=== PATIENT | male | born 1950 | race Caucasian/White ===

== ENCOUNTER 2017-09-10 06:37 | Day surgery (SDC) | payer MEDICARE ==
[2017-09-09 11:42] VITALS: BMI 24.4
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
[2017-09-10] MEDS ORDERED: CEFAZOLIN/Water 2 GM/20 ML SYRINGE ONE (07:49)
[2017-09-10 08:08] LABS: #Basophils 0.1 thou/uL (0.0-0.2); #Eosinphils 0.3 thou/uL (0.0-0.7); #Lymphocytes 3.1 thou/uL (1.20-3.40); #Monocytes 0.5 thou/uL (0.11-0.59); %Basophils 1.1 % (0.0-1.0); %Lymphocytes 38.5 % (21.0-51.0); %Monocytes 6.8 % (0.0-10.0); Hematocrit 41.7 % (42.0-52.0); Mean Platelet Volume 8.5 fL (7.4-10.4); Red Blood Cell (RBC) Count 4.52 mill/uL (4.70-6.10)
[2017-09-10 08:09] LABS: Anion Gap 11 mmol/L (10-20); BUN (Urea Nitrogen) 14 mg/dL (8.4-25.7); Calc. Creatinine Clearance 122 mL/min (70-130); Calcium 9.2 mg/dL (7.8-10.44); Carbon Dioxide 28 mmol/L (23-31); Chloride 105 mmol/L (98-107); Estimated GFR-MDRD Greater than 90
[2017-09-10] MEDS ORDERED: Midazolam HCl 2 mg/2 ml Vial ONE (08:35)
[2017-09-10] MEDS ORDERED: Fentanyl 100 MCG/2 ML VIAL ONE ×2 (08:35→10:24)
[2017-09-10] MEDS ORDERED: Bupivacaine/Epinephrine 0.25% 30 ML VIAL ONE (08:40)
[2017-09-10] MEDS ORDERED: Ketorolac Tromethamine 30 MG/ML VIAL ONE (10:40)
[2017-09-10] MEDS ORDERED: HYDROcodone/Acetaminophen 7.5/325 mg Tablet ONE (11:40)
--- NOTE | 2017-09-10 11:53 | OP ---
DATE OF PROCEDURE: 09/10/2017 SURGEON: Teddy Osorio M.D. ANESTHESIA: General. PREOPERATIVE DIAGNOSIES: Medial meniscal tear and degenerative arthritis, right knee. POSTOPERATIVE DIAGNOSES: Medial meniscal tear and degenerative arthritis, right knee. PROCEDURE: Arthroscopy right knee with partial medial meniscectomy, and shaving of medial femoral co ndyle. OPERATIVE FINDINGS: Examination under anesthesia revealed the knee to be stable. At arthroscopy, th ere was diffuse grade II changes of the patella, but no areas requiring shaving. Examination of the medial compartment revealed a complex chronic tear of the posterior horn of the medial meniscus and d iffuse grade III changes in the weightbearing surface of the medial femoral condyle with fronds of fi brillated articular surface. No areas of exposed bone. There were grade II changes of the medial ti bial plateau. ACL appeared to be intact. Lateral compartment revealed minimal degenerative changes. There some fraying of the free border of the lateral meniscus, but the lateral meniscus was intact to probing. NARRATIVE REPORT: After satisfactory anesthesia was induced in supine position, the patient was plac ed in a leg bynum and prepped and draped in the routine manner. The right leg was elevated, exsangu inated with an Esmarch bandage, and the tourniquet inflated to 300 mmHg. May arthroscope was int roduced into the anterolateral portal, probe through an anteromedial portal, and inflow and outflow a ccomplished through the scope using the [employer] arthroscopy pump. Arthroscopy was carried out and th e above findings were noted. All findings were documented with the video printer and hard copies wer e made. Posterior horn of the medial meniscus was debrided with basket forceps and motorized shaver. The tear and the remaining rim saucerized and probed and found to be stable. There was still intac t rim of 2-3 mm. Medial femoral condyle was debrided with a motorized shaver of all fronds of fibril lated articular surface. No areas of exposed bone were apparent. The scope was introduced in the an teromedial portal, and all compartments visualized and no additional pathology found. The knee was t hen copiously irrigated through the scope and all instruments were then withdrawn. Twenty mL of 0.25 % Marcaine with epinephrine was instilled into the knee joint and an additional 10 mL injected about the portal sites. The portal sites were closed with 3-0 nylon. A sterile bulky compressive dressing was applied and the tourniquet deflated after 28 minutes. The foot promptly pinked up and the patie nt was awakened and taken to recovery room in stable condition. There were no apparent intraoperativ e complications. The estimated blood loss was negligible. The patient will be discharged home in satisfactory condition. He was instructed on ice, elevation, use of crutches, and home exercise program by the Physical Therapy Department. He was given written wound care instructions and a prescription for [place] 7.5 for pain, 40 tablets. He will be rechecked in my office in approximately 1 week or sooner if there are any problems prior to that time.
--- NOTE | 2017-09-10 12:50 | EKG ---
Test Reason : PREOP Blood Pressure : / mmHG Vent. Rate : 070 BPM Atrial Rate : 070 BPM P-R Int : 188 ms QRS Dur : 108 ms QT Int : 404 ms P-R-T Axes : 056 -39 059 degrees QTc Int : 436 ms Sinus rhythm with occasional Premature ventricular complexes Left axis deviation Abnormal ECG No previous ECGs available Confirmed by DAMION JONES ([id number]) on 09/10/2017 12:50:18 PM Referred By: DEVENDRA Confirmed By:DAMION JONES
[2017-09-10] MEDS ORDERED: Propofol 200 MG/20 ML VIAL ONE (15:29)
[2017-09-10] MEDS ORDERED: Ondansetron HCl/PF 4 MG/2 ML Vial ONE (15:29)
[2017-09-10] MEDS ORDERED: Lidocaine 1% PF 5 ML VIAL ONE (15:29)
[2017-09-10] MEDS ORDERED: PHENYLEPHRINE-NS 100 MCG/ML 10 ML SYRINGE ONE (15:29)
== END 2017-09-10 12:30 | disposition home or self-care (01) ==
LOC: SDC 06:37
PROVIDERS: ATTEND Orthopaedic Surgery
PROC: 0SBC4ZZ Excision of Right Knee Joint, Percutaneous Endoscopic Approach (ICD-10-PCS; principal; 2017-09-10)
DX: S83.231A Complex tear of medial meniscus, current injury, right knee, initial encounter (principal); M17.11 Unilateral primary osteoarthritis, right knee; H81.09 Meniere's disease, unspecified ear; K21.9 Gastro-esophageal reflux disease without esophagitis; Z98.890 Other specified postprocedural states; Z79.51 Long term (current) use of inhaled steroids; Z79.899 Other long term (current) drug therapy
CPT/HCPCS: 29881; 80048; 85025; 93005; 96374 ×2; 97116; 97139; G8978; G8979; G8980; 93010; J1885; J2001; J2250; J2405; J2704; J3010

== ENCOUNTER 2019-07-22 08:54 | Outpatient (CLI) | payer MEDICARE ==
--- NOTE | 2019-07-22 09:34 | RAD ---
CHEST TWO VIEWS: HISTORY: Wheezing. FINDINGS: Heart size is normal. The lungs are clear of acute process. Mild increased markings bilaterally which have a chronic appearance. No confluent pneumonia, overt edema or pleural effusion. IMPRESSION: Mild chronic appearing increased markings. No evidence for acute process. POS: [facility]
== END 2019-07-22 08:55 | disposition home or self-care (01) ==
LOC: RAD-FRANK 08:54
PROVIDERS: ATTEND Nurse Practitioner Family
DX: J06.9 Acute upper respiratory infection, unspecified (principal); R06.2 Wheezing; R05 Cough; R91.8 Other nonspecific abnormal finding of lung field
CPT/HCPCS: 71046

== ENCOUNTER 2022-12-09 11:00 | Outpatient (CLI) | payer MEDICARE, OTHER | END 2022-12-09 11:01 | disposition home or self-care (01) | LOC: RAD 11:00 | PROVIDERS: ATTEND Internal Medicine Critical Care Medicine | DX: R06.00 Dyspnea, unspecified (principal) | CPT/HCPCS: 71046 ==

== ENCOUNTER 2023-12-10 09:03 | Outpatient (CLI) | payer OTHER | END 2023-12-10 09:04 | disposition home or self-care (01) | LOC: RAD 09:03 | PROVIDERS: ATTEND Internal Medicine Critical Care Medicine | DX: R06.00 Dyspnea, unspecified (principal) | CPT/HCPCS: 71046 ==

== ENCOUNTER 2024-12-09 10:24 | Outpatient (CLI) | payer OTHER | END 2024-12-09 10:25 | disposition home or self-care (01) | LOC: RAD 10:24 | PROVIDERS: ATTEND Internal Medicine Critical Care Medicine | DX: R06.00 Dyspnea, unspecified (principal) | CPT/HCPCS: 71046 ==